=== PATIENT | female | born 1985 | race Caucasian/White ===

== ENCOUNTER → 2017-01-27 | Emergency (ER) | payer MEDICAID, OTHER ==
[~2017-01-27] VITALS: Ht 154.9 cm; Wt 68.0 kg
[~2017-01-27] MED LIST: CYCL-319 PO; IBUP800T25 PO; KETOROLAC 30 MG INJ IM STA
[2017-01-27 15:14] VITALS: Ht 154.9 cm; Wt 68.0 kg
--- NOTE | 2017-01-27 18:31 | RADRPT ---
PROCEDURE: Lumbar Spine. CLINICAL INDICATION: Low back pain, status post injury. TECHNIQUE: 4 views of the lumbar spine. COMPARISON: None available FINDINGS: The lumbar lordosis is preserved without spondylolisthesis. The vertebral body heights are maintaine d. No acute fracture or subluxation is seen. There are no degenerative changes. IMPRESSION: 1. No acute fracture or subluxation. RPTAT: HTAR .Jay Aguilar MD, MD Date Time Electronically viewed and signed by .Jay Aguilar MD, on 01/27/2017 18:30 .R/
--- NOTE | 2017-01-27 19:01 | ERD ---
ER Documentation Chief Complaint Date/Time DATE: 01/27/17 TIME: 18:56 Chief Complaint low back pain x 2 days; no trauma HPI 31-year-old female complaining of lower back pain 3 days. Patient stated that pain first onset when she was putting on her pants in the morning. She felt immediate sharp pain on the right lower back. She was unable to bend over immediately after. She had pain radiate down both of her legs. She took over- the-counter ibuprofen 200 mg this morning without relief of the pain. Denies fever chills. Denies saddle paresthesia. He denies bowel bladder dysfunction. Denies extremity numbness or weakness. ROS All systems reviewed and are negative except as per history of present illness. Medications Home Meds Active Scripts Cyclobenzaprine Hcl* (Cyclobenzaprine Hcl*) 10 Mg Tablet, 10 MG PO TID, #15 TAB Prov:ANGELLA MAJANO. [employer]ER 01/27/17 Ibuprofen* (Motrin*) 800 Mg Tab, 800 MG PO Q8, #30 TAB Prov:ANGELLA MAJANO. [employer]ER 01/27/17 PMhx/Soc Medical and Surgical Hx: pt denies Medical Hx, pt denies Surgical Hx Physical Exam Vitals Vital Signs Date Time Temp Pulse Resp B/P Pulse Ox O2 Delivery O2 Flow Rate FiO2 01/27/17 15:14 98.2 74 18 109/57 98 Physical Exam General impression: Well-developed, well-nourished. Alert, oriented, in no acute distress Head: Normocephalic, atraumatic. Eyes: PERRL, EOM normal. Conjunctiva not injected. Neck: Supple, nontender. No lymphadenopathy. No nuchal rigidity. Respiration: Normal respiratory effort. Lungs clear to auscultate bilaterally. No wheezes, rales or rhonchi. Cardiovascular: Regular rate and rhythm. No murmurs or extra heart sounds. Back: Normal to inspection. Midline spine tenderness at L4 and L5. Paraspinal muscle spasm in the right lumbar region. No CVA tenderness. Extremities: Extremities normal to inspection, nontender. ROM normal. Neuro: Mental status normal, speech normal. ORE SMELTER grossly intact. No saddle paresthesia. Skin: Normal turgor. No rash or lesions. Psych: Normal mood and affect. Results 24 hrs Current Medications Medications (Trade) Dose Ordered Sig/Silvano Route PRN Reason Start Time Stop Time Status Last Admin Dose Admin Ketorolac Tromethamine (Toradol) 30 mg ONCE STAT IM 01/27/17 17:04 01/27/17 17:05 DC 01/27/17 17:22 Procedures/MDM Well-appearing 31-year-old female presented to ED with acute lower back pain 3 days. Toradol 30 mg IM given to the patient in the ED for pain. X-ray of the lumbar spine was obtained, no spinal fracture subluxation was noted on x-ray. Patient has right paraspinal muscle spasm, likely patient had sustained a muscle strain. Low suspicion for disc herniation, spinal epidural abscess, or cauda equina syndrome. Patient appears well, stable for discharge and outpatient management. Patient advised to follow-up with PCP for a physical therapy referral. Medical decision making shared with patient and family. Education provided to patient and family. Patient and family expressed understanding of the plan. Medications on discharge: Ibuprofen, Flexeril. Follow-up: Primary care provider in 2-3 days or return to ED if worse. Departure Diagnosis: Primary Impression: Low back strain Encounter type: initial encounter Qualified Code: S39.012A - Low back strain , initial encounter Condition: Good Patient Instructions: Back Sprain/Strain Referrals: COMMUNITY CLINICS YOU HAVE RECEIVED A MEDICAL SCREENING EXAM AND THE RESULTS INDICATE THAT YOU DO NOT HAVE A CONDITION THAT REQUIRES URGENT TREATMENT IN THE EMERGENCY DEPARTMENT. FURTHER EVALUATION AND TREATMENT OF YOUR CONDITION CAN WAIT UNTIL YOU ARE SEEN IN YOUR DOCTORS OFFICE WITHIN THE NEXT 1-2 DAYS. IT IS YOUR RESPONSIBILITY TO MAKE AN APPOINTMENT FOR FOLOW-UP CARE. IF YOU HAVE A PRIMARY DOCTOR --you should call your primary doctor and schedule an appointment IF YOU DO NOT HAVE A PRIMARY DOCTOR YOU CAN CALL OUR PHYSICIAN REFERRAL HOTLINE AT IF YOU CAN NOT AFFORD TO SEE A PHYSICIAN YOU CAN CHOSE FROM THE FOLLOWING [facility] [id number] [facility] [address] [facility] [facility] [address] [facility] [address] [facility] [address] [facility] [facility] [address] Additional Instructions: Call your primary care doctor TOMORROW for an appointment during the next 2-3 days.See the doctor sooner or return here if your condition worsens before your appointment time. ANGELLA MAJANO NP Jan 27, 2017 19:00
[2017-01-27 19:04] VITALS: BP 120/76; PULSE 75; RESP 18; TEMP 96.9
== END | disposition home or self-care (01) ==
LOC: FTE 15:07
DX: S39.012A Strain of muscle, fascia and tendon of lower back, initial encounter (principal); X58.XXXA Exposure to other specified factors, initial encounter; Y92.9 Unspecified place or not applicable
CPT/HCPCS: 72100; 96372; J1885; Z7502